=== PATIENT | male | born 1960 | race Caucasian/White ===

== ENCOUNTER 2018-05-07 23:49 | Inpatient (IN) | payer OTHER ==
--- NOTE | 2018-05-08 00:10 | EDPHY ---
H & P Stated Complaint: Left lower dental pain x 2 hrs. Had root canal 1 wk ago. On amox/prednisone Time Seen by Provider: 05/08/18 00:09 HPI/ROS: HPI: This is a 57-year-old male who presents with Chief Complaint: Left lower dental pain x 2 hrs. Had root canal 1 wk ago. On amox/prednisone Location: Left lower dental Quality: Pain Duration: 2 hr Signs and Symptoms: no fever, no nausea, no vomiting, no diarrhea, no urinary symptoms, no chest pain, no shortness of breath, no wheezing, no cough, no sore throat, no neck stiffness, no joint pain, no swollen glands, no ear pain, no rash, no drooling Timing: Acute Severity: Moderate to severe Context: Patient reports that he had a root canal performed approximately 1 week ago. Over the last week he has noted pain in the left lower molar where the root canal was performed. He called his oral surgeon last Thursday and he was placed on Amoxicillin and Prednisone. Reports that over the last 3 days, he has had foul taste in his mouth that tastes like "rotten popcorn." He noted this evening some drainage of "pus" that had a bad taste. He complains of left lower jaw swelling that has increased in size over the last 48 hr. He is only able to open his mouth 2 finger with wide. Notes decreased intake. Modifying Factors: See above Comment: ROS: A comprehensive 10 system review of systems is otherwise negative aside from elements mentioned in the history of present illness. MEDICAL/SURGICAL/SOCIAL HISTORY: Medical history: Generally healthy. Does not take any regular medications. Surgical history: testicular cyst removal, ACL repair Social history: Never smoked. Family history noncontributory. CONSTITUTIONAL: Well-developed, well-nourished, nontoxic-appearing male, awake and alert, no obvious distress HEENT: Atraumatic and normocephalic, PERRL, EOMI. Nares patent; no rhinorrhea; no nasal mucosal edema. Tympanic membranes clear. Oropharynx clear, #18; gingival swelling noted; tenderness to palpation; halitosis; left mandible moderate swelling; dry oral mucosa. Airway patent. No lymphadenopathy. No meningismus. No malocclusion. Cardiovascular: Normal S1/S2, tachycardia, regular rhythm, without murmur rub or gallop. PULMONARY/CHEST: Symmetrical and nontender. Clear to auscultation bilaterally. Good air movement. No accessory muscle usage. ABDOMEN: Soft, nondistended, nontender, no rebound, no guarding, no peritoneal signs, no masses or organomegaly. No CVAT. EXTREMITIES: 2/2 pulses, strength 5/5, no deformities, no clubbing, no cyanosis or edema. NEUROLOGICAL: no focal neuro deficits. GCS 15. Speech clear. SKIN: Warm and dry, no erythema. no rash. Good capillary refill. Source: Patient Exam Limitations: No limitations - Personal History Current Tetanus Diphtheria and Acellular Pertussis (TDAP): Yes - Medical/Surgical History Hx Asthma: No Hx Chronic Respiratory Disease: No Hx Diabetes: No Hx Cardiac Disease: No Hx Renal Disease: No Hx Cirrhosis: No Hx Alcoholism: No Hx HIV/AIDS: No Hx Splenectomy or Spleen Trauma: No Other PMH: testicular cyst removal, ACL repair - Social History Smoking Status: Never smoked Constitutional: Initial Vital Signs Temperature (C) 36.8 C 05/07/18 23:54 Heart Rate 120 H 05/07/18 23:54 Respiratory Rate 18 05/07/18 23:54 Blood Pressure 161/98 H 05/07/18 23:54 O2 Sat (%) 96 05/07/18 23:54 O2 Delivery Mode Room Air Allergies/Adverse Reactions: No Known Allergies Allergy (Unverified 05/07/18 23:52) Home Medications: Medication Instructions Recorded Amoxicillin 05/07/18 Motrin (*) 05/07/18 Multivitamins 05/07/18 Prednisone 05/07/18 Medical Decision Making ED Course/Re-evaluation: Vital signs reviewed and show mild tachycardia. IV access and laboratory studies obtain. CT maxillofacial scan ordered Given 1 L normal saline, IV morphine 4 mg, IV clindamycin 600 mg 0040: Labs reviewed. WBC 15 K with left shift. No signs of electrolyte imbalance, acute kidney injury. 0120: Radiology called Dr. Richardson and reported that CT maxillofacial scan shows no acute fluid collection/abscess, does show substantial inflammation ED decision to consult for admission for dental infection with failure outpatient treatment. Spoke with hospitalist, Dr. Franklin, who kindly agrees to admit patient to provide further care. This patient was seen under the supervision of my secondary supervising physician. I evaluated care for this patient independently. Discussed this patient with Dr. Richardson. Differential Diagnosis: Differential diagnosis includes but is not limited to periapical abscess - Data Points Laboratory Results: Laboratory Results 05/08/18 00:20 05/08/18 00:20 05/08/18 05/08/18 00:20 00:20 WBC 15.74 10^3/uL H 10^3/uL (3.80-9.50) RBC 5.51 10^6/uL 10^6/uL (4.40-6.38) Hgb 17.1 g/dL g/dL (13.7-17.5) Hct 47.3 % % (40.0-51.0) MCV 85.8 fL fL (81.5-99.8) MCH 31.0 pg pg (27.9-34.1) MCHC 36.2 g/dL g/dL (32.4-36.7) RDW 11.0 % L % (11.5-15.2) Plt Count 274 10^3/uL 10^3/uL (150-400) MPV 9.1 fL fL (8.7-11.7) Neut % (Auto) 80.9 % H % (39.3-74.2) Lymph % (Auto) 8.0 % L % (15.0-45.0) Bates % (Auto) 9.0 % % (4.5-13.0) Eos % (Auto) 0.3 % L % (0.6-7.6) Baso % (Auto) 0.3 % % (0.3-1.7) Nucleat RBC Rel Count 0.0 % % (0.0-0.2) Absolute Neuts (auto) 12.74 10^3/uL H 10^3/uL (1.70-6.50) Absolute Lymphs (auto) 1.26 10^3/uL 10^3/uL (1.00-3.00) Absolute Monos (auto) 1.41 10^3/uL H 10^3/uL (0.30-0.80) Absolute Eos (auto) 0.04 10^3/uL 10^3/uL (0.03-0.40) Absolute Basos (auto) 0.05 10^3/uL 10^3/uL (0.02-0.10) Absolute Nucleated RBC 0.00 10^3/uL 10^3/uL (0-0.01) Immature Gran % 1.5 % H % (0.0-1.1) Immature Gran # 0.24 10^3/uL H 10^3/uL (0.00-0.10) Sodium 141 mEq/L mEq/L (135-145) Potassium 4.2 mEq/L mEq/L (3.3-5.0) Chloride 101 mEq/L mEq/L (97-110) Carbon Dioxide 26 mEq/l mEq/l (22-31) Anion Gap 14 mEq/L mEq/L (6-14) BUN 19 mg/dL mg/dL (7-23) Creatinine 1.0 mg/dL mg/dL (0.7-1.3) Estimated GFR > 60 Glucose 127 mg/dL H mg/dL (70-100) Calcium 9.8 mg/dL mg/dL (8.5-10.4) Medications Given: Discontinued Medications Clindamycin Phosphate/Dextrose (Cleocin 600 Mg (Premix)) 50 mls @ 100 mls/hr IV EDNOW ONE PRN Reason: Protocol Stop: 05/08/18 00:44 Last Admin: 05/08/18 00:21 Dose: 50 mls Sodium Chloride (Ns) 1,000 mls @ 0 mls/hr IV ONCE ONE; Wide Open PRN Reason: Protocol Stop: 05/08/18 00:14 Last Admin: 05/08/18 00:26 Dose: 1,000 mls Morphine Sulfate (Morphine) 4 mg IVP EDNOW ONE Stop: 05/08/18 00:15 Last Admin: 05/08/18 01:35 Dose: Not Given Ondansetron HCl (Zofran) 4 mg IVP EDNOW ONE Stop: 05/08/18 00:15 Last Admin: 05/08/18 01:35 Dose: Not Given Departure - Departure Disposition: [facility] In[facility] Acute Clinical Impression: Failure of outpatient treatment, Odontalgia, Dental infection Condition: Fair
[2018-05-08] MEDS ORDERED: NS 1,000 ML IV ONE (00:13)
[2018-05-08] MEDS ORDERED: ONDANSETRON 4 MG/2 ML VIAL IVP ONE (00:14)
[2018-05-08] MEDS ORDERED: CLINDAMYCIN 600 MG/DEXTROSE 50 ML IV ONE (00:15)
[2018-05-08 00:37] LABS: PLATELET COUNT 274 10^3/uL (150-400)
[2018-05-08] MEDS ORDERED: ONDANSETRON DISINTEGRATING 4 MG TAB PO PRN (01:43)
[2018-05-08] MEDS ORDERED: HYDROCODONE/APAP 5/325 TAB PO PRN (01:43)
[2018-05-08] MEDS ORDERED: ONDANSETRON 4 MG/2 ML VIAL IVP PRN (01:43)
[2018-05-08] MEDS ORDERED: ACETAMINOPHEN 325 MG TAB PO PRN (01:43)
[2018-05-08] MEDS ORDERED: LORazepam 0.5 MG TAB PO PRN (01:43)
[2018-05-08] MEDS: NS 1,000 ML IV SCH ×3 (03:43→23:20)
[2018-05-08 05:20] LABS: PLATELET COUNT 222 10^3/uL (150-400)
--- NOTE | 2018-05-08 06:48 | GHP ---
DATE OF ADMISSION: 05/08/2018 PRIMARY CARE PHYSICIAN: Logan Falcon MD. SOURCE: Patient provides history, appears reliable. EMR was reviewed and case discussed with ED pro vider. CHIEF COMPLAINT: Face swelling and dental pain. HISTORY OF PRESENT ILLNESS: This is a very pleasant 57-year-old gentleman with no significant past m edical history, who presents to the emergency department today with complaints of 1-1/2 weeks of wors ening left lower dental pain and swelling. The patient reports he had a root canal completed in [facility] due to some dental pain he was experiencing. Several days later, he continued to have i ncreasing pain, and he called the dentist and was prescribed some amoxicillin. His symptoms did not improve, and he was subsequently placed on prednisone a week ago. The patient has continued to have subjective fevers, chills and sweats at home. He has not had any dysphagia or odynophagia. He denie s any shortness of breath or cough. He has continued to have dental pain. No numbness or tingling. Given his persistent symptoms and lack of improvement and worsening pain, the patient [facility] for further evaluation. REVIEW OF SYSTEMS: Patient reports occasional headaches. Otherwise, 10 systems reviewed and otherwi se negative. ALLERGIES: No known drug allergies. HOME MEDICATIONS: Current medications including prednisone, multivitamin, Motrin, and amoxicillin. PAST SURGICAL HISTORY: Significant for ACL repair and a testicular cyst removal. FAMILY HISTORY: Father and brother with diabetes type 2. SOCIAL HISTORY: Patient denies any tobacco, drugs, or alcohol. He has a fiancee. CODE STATUS: Full. PHYSICAL EXAMINATION: VITAL SIGNS: Upon arrival to the emergency department, blood pressure 161/98, heart rate 120, respiratory rate 18, O2 sat is 96% on room air with temperature 36.8. Current vital signs reveal blood pressure 137/85, heart rate 99, respiratory rate 16, O2 saturation 93% on room ai r, with temperature 36.7. GENERAL: No acute distress. Very pleasant adult gentleman resting comfor tably in bed awake. HEAD: Normocephalic, atraumatic. EYES: Extraocular muscles grossly intact. P upils equal and symmetric. No scleral icterus, conjunctival injection. ENT: The patient with some submandibular swelling on the left side. Mucous membranes appear moist. No nasal discharge. NECK: Supple. Trachea midline. CV: Regular rate and rhythm in the 80s to 90s. No murmurs, rubs, or gal lops appreciated. RESPIRATORY: Lungs are clear to auscultation bilaterally. No wheezes, rales, or rhonchi. ABDOMEN: Positive bowel sounds. Soft, nondistended. : No Rdz catheter in place. EX TREMITIES: No cyanosis, clubbing, or edema. 2+ pedal pulses. NEURO: Grossly nonfocal. Moves all extremities. Strength intact. PSYCH: Thought process, content and questions are all appropriate. Patient is pleasant, cooperative, and in good spirits. LABORATORY STUDIES: WBC 15.74, H and H 17.1 and 47.3, and platelet count 274. Patient's bands 1.5%. Sodium is 141, potassium is 4.2, chloride 101, CO2 is 26, anion gap 14, BUN 19, creatinine is 1.0. GFR greater than 60, glucose 127, calcium 9.8. CT of the face, preliminary report reviewed, showing soft tissue swelling left side of the floor of t he mouth with tiny gas bubbles adjacent to the left side of the mandibular body. No fluid collection or evidence of osteomyelitis. ASSESSMENT AND PLAN: Pleasant 57-year-old gentleman with a recent dental root canal, who presents wi complaints of 1-1/2 weeks of persistent face swelling and dental pain. 1. Odontogenic infection with increasing dental pain. Patient has been started on IV clindamycin se condary to failure of weeks of treatment with oral amoxicillin and prednisone. The patient reports t hat he feels like he has increased drainage from the affected tooth of purulent drainage. Pain is pe rsistent. He has ibuprofen and [place] available for pain. He does have some facial swelling on the l ower left face and will continue to monitor this closely. 2. Sepsis without organ dysfunction. The patient does have a leukocytosis. He initially had a tach ycardia, which has resolved. He is afebrile. We will continue to monitor this closely. 3. Fluids, electrolyte, nutrition. Continue with some supplemental IV fluids until patient's oral i ntake has improved and pain is tolerable. Electrolytes will be monitored, replaced if needed. Advan ce diet as tolerated to regular. Prophylaxis with SCDs and Lovenox. 4. Code status: Full. DISPOSITION: Patient admitted to inpatient status secondary to failure of outpatient therapy with SI RS criteria and lower facial swelling. Will monitor closely. /[id number]/MODL
--- NOTE | 2018-05-08 07:44 | PDMN ---
Medical Necessity Medical necessity: MCG: M160 sepsis and other febrile illness:, GRG head and neck disease: pt with odontogenic infection with increasing dental pain. Failed outpt tx S/P root canal, pt with swelling, drainage, pain, pt admitted with with hypertension, tachycardia, leukocytosis, resolving, anticipate > 2 MN ongoing gmed nec care, further eval, monitoring and tx of above.
[2018-05-08] MEDS ORDERED: CLINDAMYCIN 600 MG/DEXTROSE 50 ML IV SCH (08:00)
[2018-05-08] MEDS: IBUPROFEN 200 MG TAB PO PRN ×3 (08:34→23:11)
[2018-05-08] MEDS ORDERED: ENOXAPARIN 40 MG/0.4 ML SYR SC SCH (09:00)
--- NOTE | 2018-05-08 12:30 | HOSPPROG ---
Hospitalist Progress Note Assessment/Plan: 57yo healthy M here with tooth infection after dental procedure. Failed outpatient antibiotics with amoxicillin. #Odontogenic infection - overall improving. clindamycin has less efficacy against Strep species so will switch to unasyn - CT without drainable fluid collection - IV unasyn 3g q6h - Monitor fever curve, clinical response - If continues to improve, plan to dc on augmentin #Leukocytosis - improving, not septic VTE ppx: LMWH Dispo: Remain inpatient, hopefully dc tomorrow on PO antibiotics Subjective: Jaw pain improving. Still having some pus in mouth. No fevers. Objective: Vital Signs Temp Pulse Resp BP Pulse Ox 36.8 C 80 16 121/82 H 95 05/08/18 08:20 05/08/18 08:20 05/08/18 08:20 05/08/18 08:20 05/08/18 08:20 Laboratory Results 05/08/18 04:33 05/08/18 04:33 05/07/18 05/08/18 05/09/18 05:59 05:59 04:59 Intake Total 1400 Balance 1400 - Physical Exam Constitutional: no apparent distress, appears nourished, not in pain Eyes: PERRL, anicteric sclera, EOMI Ears, Nose, Mouth, Throat: moist mucous membranes, other (no significant erythema or drainage visible on oral inspection) Cardiovascular: regular rate and rhythym, no murmur, rub, or gallop Respiratory: no respiratory distress, no rales or rhonchi, clear to auscultation Gastrointestinal: normoactive bowel sounds, soft, non-tender abdomen, no palpable masses Genitourinary: no bladder fullness, no bladder tenderness, no renal bruits Skin: no rashes or abrasions, no fluctuance, no induration Musculoskeletal: full muscle strength, no muscle tenderness, normal joint ROM Neurologic: AAOx3, sensation intact bilaterally Psychiatric: interacting appropriately, not anxious, not encephalopathic, thought process linear Lymph, Heme, Immunologic: lymphadenopathy (submental ) ICD10 Worksheet Patient Problems: Problems Problem Status Onset Dental infection Acute Failure of outpatient treatment Acute Odontalgia Acute
--- NOTE | 2018-05-08 12:49 | ASMTCMCOM ---
CM Note CM Note Notes: Pt admitted for tooth infection that was failing outpatient treatment. Pt had a root canal about 1 wk ago. Pt is receiving IV Unasyn and overall his condition is improving. Per chart review, if improvement continues pt could DC tomorrow on PO antibiotics. Anticipate pt to stabilize and DC home w/fiancee on PO antibiotics and to follow-up outpatient. Date Signed: 05/08/2018 12:48 PM Electronically Signed By:Brianne Knapp RN
[2018-05-08] MEDS: AMPICILLIN/SULBACTAM 3 GM in NS 100 ML IV SCH ×3 (13:14→23:11)
[2018-05-09] MEDS: AMPICILLIN/SULBACTAM 3 GM in NS 100 ML IV SCH ×2 (05:08→11:58)
[2018-05-09] MEDS: IBUPROFEN 200 MG TAB PO PRN (08:47)
[2018-05-09] MEDS: NS 1,000 ML IV SCH (08:48)
[2018-05-09 08:54] VITALS: BP 118/87
--- NOTE | 2018-05-09 12:47 | ASDISCHSUM ---
Discharge Information Plan Status:Home with No Needs Medically Cleared to Leave:05/09/2018 Discharge Date:05/09/2018 CM D/C Disposition:Home, Routine, Self-Care ADT D/C Disposition:Home, Routine, Self-Care Projected Discharge Date:05/09/2018 Transportation at D/C: Discharge Delay Reason: Follow-Up Date:05/09/2018 Discharge Slot: Final Diagnosis: Placement Information Patient Contact Information Contact Name:DANIEL Relationship:Other Address:[address] Work Phone: City:[place] Alternate Phone: State/Zip Code:[place] [address] Email: Financial Information Financial Class:HMO and PPO Plans Primary Plan Desc:[facility] Primary Plan Number:[id number] Secondary Plan Desc: Secondary Plan Number: Assessment Information [facility] CM Progress Note CM Note CM Note Notes: Pt admitted for tooth infection that was failing outpatient treatment. Pt had a root canal about 1 wk ago. Pt is receiving IV Unasyn and overall his condition is improving. Per chart review, if improvement continues pt could DC tomorrow on PO antibiotics. Anticipate pt to stabilize and DC home w/fiancee on PO antibiotics and to follow-up outpatient. Date Signed: 05/08/2018 12:48 PM Electronically Signed By:Brianne Knapp RN Intervention Information
--- NOTE | 2018-05-09 12:48 | ASMTLACE ---
LACE Length of stay for Answers: 1 day current admission Acuity / Level of Answers: Yes Care: Did the patient have an inpatient admission? Comorbidities - select Answers: Other Notes: testicular cyst all that apply removal, ACL repair # of Emergency department Answers: 1-2 visits in the last 6 months Score: 6 Date Signed: 05/09/2018 12:47 PM Electronically Signed By:Columba Cintron RN
--- NOTE | 2018-05-09 12:49 | ASMTCMCOM ---
CM Note CM Note Notes: Patient reviewed in rounds. Medically cleared for dc to home, No needs identified. CM available should needs arise. Plan: DC to home independently with family support. Date Signed: 05/09/2018 12:48 PM Electronically Signed By:Columba Cintron RN
--- NOTE | 2018-05-13 15:43 | GDS ---
SERVICE: [facility] hospitalist. CONSULTS: None. PROCEDURE: Facial CT, which showed diffuse soft tissue swelling along the left body of the mandible, tiny gas bubble along the inner body of the mandible. No subperiosteal abscess or evidence of osteomyelitis. INITIAL H AND P: Please see previously dictated note by Dr. Franklin. ADMISSION DIAGNOSES: 1. Odontogenic infection. 2. Sepsis (based upon leukocytosis, tachycardia). DISCHARGE DIAGNOSES: 1. Odontogenic infection, resolving. 2. Sepsis. HOSPITAL COURSE: The patient came to the emergency department for evaluation of infection in his left upper mouth after having a dental procedure. He had been placed on amoxicillin as an outpatient, but was having increasing symptoms , so came in for evaluation. He was noted to have tachycardia and a leukocytosis with a white blood cell count of over 15,000. He was initially started on clindamycin IV. Antibiotics were changed on hospitalization day 1 to Unasyn for better strep coverage. During the course of his stay, his vital signs remained stable, and he was afebrile. Blood cultures were not done as the patient had already been on antibiotics. On the day of discharge, he was feeling much better, he had less pain. was able to tolerate a diet, and he was afebrile. He felt comfortable discharging to home and has a followup appointment planned with his dentist. DISCHARGE MEDICATIONS: Tylenol as needed, [place] as needed, ibuprofen as needed. Augmentin 875/125, one tab p.o. b.i.d. for a week. DISCHARGE INSTRUCTIONS: If at any time he has increased pain, fever, chest pain , shortness of breath, or other concerns, he should return immediately to the emergency department for evaluation. Otherwise, he should follow up with his dentist as planned. I have also recommended that he see his primary care provider, Dr. Logan Falcon, within the next few days. /[id number]/MODL MTDD
== END 2018-05-09 14:41 | disposition home or self-care (01) | DRG 872 ==
LOC: F1N 05-08 03:22
PROVIDERS: ADMIT Family Medicine; ATTEND Family Medicine
DX: A41.9 Sepsis, unspecified organism (principal); K04.7 Periapical abscess without sinus; D72.829 Elevated white blood cell count, unspecified; Z23 Encounter for immunization
CPT/HCPCS: 96365; G0008; J0295; J1650; J2270; J2405